=== PATIENT | male | born 1960 | race Caucasian/White ===

== ENCOUNTER 2020-08-06 19:51 | Emergency (ER) | payer OTHER ==
[2020-08-06 20:37] LABS: EOSINOPHIL 2.9 % (0-5); HCT 43.5 % (42.0-52.0); HGB 15.5 g/dl (13.2-18.0); LYMPHOCYTE 32.6 % (15-48); MCH 32.2 pg (25.0-31.0); MCHC 35.6 g/dL (32.0-36.0); MCV 90.4 fL (78.0-100.0); MPV 10.6 fL (6.0-9.5); NEUTROPHIL 52.2 % (41-80); NRBC 0; PLT 209 K/uL (150-400); RBC 4.81 M/uL (4.70-6.00); RDW 12.1 % (11.5-14.0); WBC 8.6 K/uL (4.0-10.5)
[2020-08-06 20:42] LABS: INR 1.07 (0.9-1.2); PROTHROMBIN TIME 13.2 SECONDS (11.4-13.6); PTT 30.6 SECONDS (22.2-34.7)
[2020-08-06 20:45] LABS: ALBUMIN 3.8 g/dL (3.4-5.0); BILIRUBIN - TOTAL 0.5 mg/dL (0.2-1.0); BUN/CREAT RATIO (CALC) 9.5 RATIO; CREATININE 0.63 mg/dL (0.67-1.17); GLOBULIN (CALCULATION) 3.8 g/dL; POTASSIUM 3.4 mmol/L (3.5-5.1); TOTAL PROTEIN 7.6 g/dL (6.4-8.2)
== END 2020-08-06 22:45 | disposition home or self-care (01) ==
LOC: FER 19:51
PROVIDERS: Emergency Medicine
DX: R07.89 Other chest pain (principal); R06.02 Shortness of breath; F17.210 Nicotine dependence, cigarettes, uncomplicated; Z95.5 Presence of coronary angioplasty implant and graft; Z98.890 Other specified postprocedural states; Z86.79 Personal history of other diseases of the circulatory system
CPT/HCPCS: 36415; 71045; 80053; 84484; 85025; 85379; 85610; 85730; 93005